=== PATIENT | female | born 2000 | race African-American/Black ===

== ENCOUNTER 2025-01-18 18:13 | Emergency (ER) | payer BC, SELFPAY ==
--- NOTE | 2025-01-18 18:15 | ED_ITS ---
HPI - URI/Sore Throat General Chief Complaint: Upper Respiratory Infection Stated Complaint: COUGH/CONGESITON/SINUS Time Seen by Provider: 01/18/25 18:15 Source: patient Mode of arrival: ambulatory Limitations: no limitations History of Present Illness HPI Narrative: Kemal is a 24-year-old female patient presenting to the clinic today with complaints of cough, nasal congestion, and sinus pressure x4 days. She reports feeling feverish at times but did not check her temperature. Denies any chest pain or shortness of breath. Denies sore throat. Has been doing Mucinex, Flonase, Zyrtec, DayQuil, and NyQuil. Related Data Allergies Allergy/AdvReac Type Severity Reaction Status Date / Time No Known Allergies Allergy Verified 01/18/25 18:23 Review of Systems Review of Systems: Pertinent positives per HPI. Patient denies any fever, chills, rash, headache, visual changes, dizziness, cough, shortness of breath, chest pain, palpitations, nausea, vomiting, diarrhea, constipation, abdominal pain, or any urinary issues. PMFSH Comments At the time of my signature, I reviewed and agree with the nursing past medical, surgical, social, and family history. There is no relevant family history pertinent to the patient complaint. Exam Narrative: General: Well-developed, well nourished, in no apparent distress Head: Normocephalic, atraumatic Eyes: Pupils equally round and reactive to light bilaterally, EOM intact, sclera and conjunctive clear, no discharge, lids normal Ears: TMs intact and congested, ear canals clear, no drainage, grossly hearing normal. Nose: Nares patent, clear nasal discharge, mild inflammation, no sinus tenderness. Mouth: Oral pharynx without lesions or masses, good dentition, MMM. Postnasal drip Neck: Supple, trachea midline, no enlargement of anterior or posterior cervical nodes, no thyroid masses or goiter palpable. Cardio: Regular rate and rhythm, s1 and s2 normal, no murmur appreciated. Resp: Clear to auscultation bilaterally, no rhonchi, rales, wheezing or rubs Course Course Emergency Course: Portions of this record may have been created with voice recognition software. Level of Care: Express Care Visit Vital Signs Vital signs: Vital Signs Temperature 36.2 C L 01/18/25 18:23 Pulse Rate 90 01/18/25 18:23 Respiratory Rate 16 01/18/25 18:23 Blood Pressure 124/84 01/18/25 18:23 Pulse Oximetry 100 01/18/25 18:23 Temperature 36.2 C L 01/18/25 18:23 Pulse Rate 90 01/18/25 18:23 Respiratory Rate 16 01/18/25 18:23 Blood Pressure 124/84 01/18/25 18:23 Pulse Oximetry 100 01/18/25 18:23 Vital signs reviewed MDM - URI/Sore Throat MDM Narrative Medical decision making narrative: At the time of visit patient is resting comfortably on the exam table. Patient appears to be nontoxic. Complaints of cough, nasal congestion, and sinus pressure x4 days. She reports feeling feverish at times but did not check her temperature. Denies any chest pain or shortness of breath. Denies sore throat. Has been doing Mucinex, Flonase, Zyrtec, DayQuil, and NyQuil. On exam patient has clear nasal drainage, TMs intact and congested with fluid noted behind the TMs, oral pharynx mildly red with postnasal drip, no cervical lymphadenopathy, heart rates regular rate and rhythm, lung sounds are clear. Plan: I suspect patient has URI/serous otitis. Prescription for prednisone was sent to the pharmacy. Supportive measures were discussed with the patient and they voiced understanding discharge instructions and agrees to treatment plan. Return precautions reviewed Differential Diagnosis Differential diagnosis: Likely upper respiratory infection, otitis media, sinusitis, viral infection, bronchitis, influenza, pharyngitis and other (COVID) Discharge Plan Discharge Clinical Impression: Upper respiratory infection Qualifiers: URI type: unspecified URI Qualified Code(s): J06.9 - Acute upper respiratory infection, unspecified Patient Disposition: Home Condition: Stable Instructions: Antibiotic Form, Cold Symptoms (ED) Additional Instructions: Take prescription medications only as prescribed-prednisone Increase fluids and stay well hydrated May take Tylenol or motrin as directed on bottle for pain/fever May use Flonase 1 spray in each nare daily May take OTC antihistamines such as Zyrtec or Claritin daily as directed on bottle May apply Vicks vapor rub to chest to open sinuses Sinus rinses for congestion Cepacol spray, cough drops, throat lozenges, warm tea with honey/lemon, gargle salt water to soothe throat BRAT diet for diarrhea Clear liquids x 24 hours then advance as tolerated for nausea/vomiting Go to the ED if you develop a worsening in your condition- high fever not controlled by Tylenol or Motrin, dehydration, weakness, lethargy, shortness of breath, or chest pain. Follow up with your PCP in 3-5 days if symptoms persist. Patient Language: [place] Prescriptions: New prednisone 20 mg tablet 40 mg PO DAILY 5 Days Qty: 10 0RF Follow-up/Referrals: UNKNOWN,DOCTOR [Non-Staff] Time of Disposition: 18:31 Quality NIHSS Nursing Documentation ED NIHSS nursing documentation: reviewed/agree
[2025-01-18 18:23] VITALS: BP 124/84; PULSE 90; RESP 16; TEMP 36.2; O2SAT 100
== END 2025-01-18 18:37 | disposition home or self-care (01) ==
PROVIDERS: Emergency Provider Nurse Practitioner Family; PCP Family Medicine
DX: J06.9 Acute upper respiratory infection, unspecified (principal)
CPT/HCPCS: 99203; G0463